=== PATIENT | female | born 1985 | race Caucasian/White ===

== ENCOUNTER 2018-07-11 12:43 | Emergency (ER) | payer OTHER ==
[~2018-07-11] VITALS: Ht 170.2 cm; Wt 98.7 kg
[2018-07-11 13:06] LABS: HEMATOCRIT 40.6 % (36.0-46.0); HEMOGLOBIN 14.2 G/DL (11.9-15.5); MCH 30.3 PG (29.0-34.0); MCV 86.8 FL (83-99); PLATELET COUNT 221 K/uL (156-360); RBC DIS.WIDTH-CV 11.8 % (11.8-14.6); RBC DIS.WIDTH-SD 37.2 % (39-53); RED BLOOD COUNT 4.68 M/uL (3.80-5.20); WHITE BLOOD COUNT 11.3 K/uL (4.1-10.2)
[2018-07-11 13:21] LABS: ALBUMIN 3.9 g/dL (3.2-4.8); CHLORIDE 108 mEq/L (99-109); POTASSIUM 4.1 mEq/L (3.7-5.4); SODIUM 140 mEq/L (136-147)
[2018-07-11 13:24] LABS: GLUCOSE 107 mg/dL (70-99); TOTAL PROTEIN 6.5 g/dL (6.4-8.3)
[2018-07-11 13:26] LABS: TOTAL BILIRUBIN 0.5 mg/dL (0.0-1.0)
[2018-07-11 13:27] LABS: ALKALINE PHOSPHATASE 65 IU/L (3-129); CREATININE 0.8 mg/dL (0.6-1.3); GFR ESTIMATE (CALCULATED) > 59 mL/min/
[2018-07-11 13:28] LABS: UREA NITROGEN (BUN) 10 mg/dL (9-23)
[2018-07-11 13:29] LABS: AST (GOT) 22 IU/L (2-34)
[2018-07-11 13:30] LABS: ALT (GPT) 44 IU/L (3-49)
[2018-07-11 13:36] LABS: QUANTITATIVE HCG < 4.0 MIU/ML
[2018-07-11 15:02] LABS: APPEARANCE CLEAR ((CLEAR)); BILIRUBIN NEGATIVE; BLOOD NEGATIVE; COLOR YELLOW ((YELLOW)); GLUCOSE (STRIP) NEGATIVE; KETONES NEGATIVE; LEUKOCYTES NEGATIVE; NITRITE NEGATIVE; PROTEIN (STRIP) NEGATIVE; SPECIFIC GRAVITY 1.012 (1.000-1.030); UCUL ADDED? NO; UROBILINOGEN 0.2 MG/DL (0.2-1.0)
[2018-07-11 16:30] VITALS: BP 126/77
== END 2018-07-11 16:30 | disposition home or self-care (01) ==
LOC: EME 12:43
DX: R10.30 Lower abdominal pain, unspecified (principal); K92.1 Melena; K50.911 Crohn's disease, unspecified, with rectal bleeding; Z87.442 Personal history of urinary calculi; F17.200 Nicotine dependence, unspecified, uncomplicated
CPT/HCPCS: 80053; 81003; 84702; 85027; 99281; 99285; J1885; J2765; J7030